=== PATIENT | male | born 1950 | race Caucasian/White ===

== ENCOUNTER 2017-08-02 20:40 | Emergency (ER) | payer OTHER ==
[~2017-08-02] VITALS: Ht 180.3 cm; Wt 107.0 kg
[2017-08-02 20:49] VITALS: Ht 180.3 cm; Wt 107.0 kg
[2017-08-02] MEDS ORDERED: htn meds (22:15)
--- NOTE | 2017-08-02 22:15 | ERD ---
ER Documentation Chief Complaint Chief Complaint abscess on top of rectal area - draining with pus per dtr HPI 67-year-old male presents to emergency department for complaints of draining pus in the perirectal area. Patient has history of abscess on the perianal area before multiple years ago, [place]. Patient's complaint of pain sharp pain, 6/10 scale, worse upon touching the area. Patient does not have any fever or chills. Patient denies any bloody discharge from the rectum. Patient denies any constipation. Patient denies any abdominal pain. ROS All systems reviewed and are negative except as per history of present illness. Medications Home Meds Reported Medications [htn meds] Unknown Strength No Conflict Check 08/02/17 Allergies Allergies: Coded Allergies: No Known Allergy (Unverified , 08/02/17) PMhx/Soc History of Surgery: Yes (APPY, BILAT KNEE SCOPES) Anesthesia Reaction: No Hx Neurological Disorder: No Hx Respiratory Disorders: No Hx Cardiac Disorders: No Hx Psychiatric Problems: No Hx Miscellaneous Medical Probl: Yes (ABCESS WITH DRAINAGE) Hx Alcohol Use: Yes (OCC) Hx Substance Use: No Hx Tobacco Use: Yes Smoking Status: Former smoker FmHx Family History: No coronary disease, No diabetes, No other Physical Exam Vitals Vital Signs Date Time Temp Pulse Resp B/P Pulse Ox O2 Delivery O2 Flow Rate FiO2 08/02/17 20:49 99.3 88 20 143/93 93 Physical Exam GENERAL: The patient is well developed and appropriate for usual state of health, in no apparent distress. CHEST: Clear to auscultation bilaterally. There are no rales, wheezes or rhonchi. HEART: Regular rate and rhythm. No murmurs, clicks, rubs or gallops. No S3 or S4. ABDOMEN: Soft, nontender and nondistended. Good bowel sounds. No rebound or guarding. No gross peritonitis. No gross organomegaly or masses. No Figueroa sign or McBurney point tenderness. BACK: No midline or flank tenderness. EXTREMITIES: Equal pulses bilaterally. There is no peripheral clubbing, cyanosis or edema. No focal swelling or erythema. Full range of motion. Grossly neurovascularly intact. NEURO: Alert and oriented. Cranial nerves 2-12 intact. Motor strength in all 4 extremities with 5/5 strength. Sensation grossly intact. Normal speech and gait. SKIN: There is no apparent rash or petechia. The skin is warm and dry. HEMATOLOGIC AND LYMPHATIC: There is no evidence of excessive bruising or lymphedema. No gross cervical, axillary, or inguinal lymphadenopathy. Rectal: Noted redness and swelling and induration on the perirectal area, 10:00 , has an open wound draining pustular discharge, no fluctuance noted. Good rectal tone. No rectal bleeding noted. Result Diagram: 08/02/17224408/02/172244 Results 24 hrs Laboratory Tests Test 08/02/17 22:45 08/02/17 22:49 White Blood Count 10.510^3/ul Red Blood Count 4.8210^6/ul Hemoglobin 14.9g/dl Hematocrit 43.5% Mean Corpuscular Volume 90.2fl Mean Corpuscular Hemoglobin 30.9pg Mean Corpuscular Hemoglobin Concent 34.3g/dl Red Cell Distribution Width 12.1% Platelet Count 12540^3/UL Mean Platelet Volume 9.4fl Neutrophils % 58.4% Lymphocytes % 26.9% Monocytes % 11.6% Eosinophils % 2.4% Basophils % 0.5% Nucleated Red Blood Cells % 0.0/100WBC Neutrophils # 6.110^3/ul Lymphocytes # 2.810^3/ul Monocytes # 1.210^3/ul Eosinophils # 0.310^3/ul Basophils # 0.110^3/ul Nucleated Red Blood Cells # 0.010^3/ul Sodium Level 142mmol/L Potassium Level 4.1mmol/L Chloride Level 105mmol/L Carbon Dioxide Level 29mmol/L Anion Gap 12 Blood Urea Nitrogen 18mg/dl Creatinine 0.97mg/dl Glucose Level 108mg/dl Calcium Level 9.3mg/dl Total Bilirubin 0.8mg/dl Direct Bilirubin 0.00mg/dl Indirect Bilirubin 0.8mg/dl Aspartate Amino Transf (AST/SGOT) 20IU/L Alanine Aminotransferase (ALT/SGPT) 29IU/L Alkaline Phosphatase 67IU/L Total Protein 7.3g/dl Albumin 3.9g/dl Globulin 3.40g/dl Albumin/Globulin Ratio 1.14 Urine Color YELLOW Urine Clarity CLEAR Urine pH 5.0 Urine Specific [place] 1.024 Urine Ketones NEGATIVEmg/dL Urine Nitrite NEGATIVEmg/dL Urine Bilirubin NEGATIVEmg/dL Urine Urobilinogen 1+mg/dL Urine Leukocyte Esterase NEGATIVELeu/ul Urine Microscopic RBC 3/HPF Urine Microscopic WBC 0/HPF Urine Hemoglobin 2+mg/dL Urine Glucose NEGATIVEmg/dL Urine Total Protein NEGATIVEmg/dl Current Medications Medications (Trade) Dose Ordered Sig/Devin Route PRN Reason Start Time Stop Time Status Last Admin Dose Admin Sodium Chloride (NS) 100 ml @ ud STK-MED ONCE .ROUTE 08/02/17 23:57 08/02/17 23:58 DC 08/03/17 00:14 Iohexol 150 ml 150 ml STK-MED ONCE .ROUTE 08/02/17 23:57 08/02/17 23:58 DC 08/03/17 00:13 Clindamycin HCl/ Dextrose (Cleocin 600 Mg/ D5W (Pmx)) 50 ml @ 50 mls/hr ONCE IVPB 08/03/17 01:00 08/03/17 01:59 IV clindamycin was given here in the emergency department for treatment of the abscess. Tolerated medication well. PROCEDURE: CT Abdomen and pelvis with contrast. CLINICAL INDICATION: Abdominal pain. TECHNIQUE: CT scan of the abdomen and pelvis with contrast was performed on a multi-detector high-resolution CT scanner. The patient was scanned following the uncomplicated administration of 100 cc of Omnipaque 300 intravenous contrast. Coronal and sagittal reformatted images were obtained from the axial source images. Images were reviewed on a high-resolution PACS workstation. DICOM images are available. One or more of the following dose reduction techniques were used: - Automated exposure control. - Adjustment of the mA and/or kV according to patient size. - Use of iterative reconstruction technique. Exam CTD/vol = 20.23 mGy. Total exam DLP = 1394.41 mGy-cm. COMPARISON: None. FINDINGS: Evaluation of the lung bases demonstrates minimal bibasilar atelectasis. There are mild bronchiectatic changes within the lingula. There is a trace pericardial effusion. Abdomen: The liver is normal in size. There is no focal mass or dilatation of the biliary tree. The gallbladder is not distended. The spleen, pancreas and bilateral adrenal glands are within normal limits. Bilateral kidneys are normal in size with symmetric enhancement. There is no focal mass, hydronephrosis or hydroureter. There is no retroperitoneal adenopathy. The abdominal aorta is of normal caliber with mild scattered atherosclerotic calcifications. There is no abnormal bowel wall thickening or distension. There is no bowel obstruction or free air. The appendix is not visualized. There is no diverticulosis or diverticulitis. There is no ascites. Pelvis: The bladder is unremarkable. The prostate is mildly enlarged. There is a small left inguinal hernia containing fat. There is no significant pelvic adenopathy or free fluid. Evaluation of the osseous structures demonstrates no suspicious lytic or blastic lesion. There are degenerative changes of the spine with Schmorl's nodes at multiple levels. IMPRESSION: No acute abnormality identified within the abdomen and pelvis. Mildly enlarged prostate. Small left inguinal hernia containing fat. Vascular calcifications reflective of atherosclerosis. Trace pericardial effusion. .Alber Ellison MD, MD Date Time Electronically viewed and signed by .Alber Ellison MD, on 08/03/2017 00:22 .T/ CC: EDITH MAXWELL NP Procedures/MDM Medical decision making: Patient symptoms was likely is consistent with a perirectal abscess, is already draining, no symptoms of any fluctuance at this time. No tracking noted. No symptoms of any fistula noted in the CT scan. No s/s of any necrotizing fasciitis no deep space infection noted. No symptoms of sepsis at this time, patient appears well and is hemodynamically stable. Patient was given IV clindamycin, will be sent home with clindamycin, Colace, Tylenol for pain, is advised to follow-up with primary care doctor in 2 days, possibly see colorectal surgeon. Patient was advised to return to emergency department for any worsening times. Disposition: Home. Stable Departure Diagnosis: Primary Impression: Abscess Condition: Stable Patient Instructions: Abscess, Incision And Drainage EDITH MAXWLEL NP Aug 02, 2017 22:15
[2017-08-02 23:00] LABS: BASOPHIL # 0.1 10^3/ul (0.0-0.1); BASOPHILS % 0.5 % (0.0-2.0); EOSINOPHILS # 0.3 10^3/ul (0.0-0.5); EOSINOPHILS % 2.4 % (0.0-7.0); HEMATOCRIT 43.5 % (42.0-52.0); HEMOGLOBIN 14.9 g/dl (14.0-18.0); LYMPHOCYTES # 2.8 10^3/ul (0.8-2.9); LYMPHOCYTES % 26.9 % (15.0-51.0); MEAN CORPUSCULAR HEMOGLOBIN 30.9 pg (29.0-33.0); MEAN CORPUSCULAR HGB CONC 34.3 g/dl (32.0-37.0); MEAN CORPUSCULAR VOLUME 90.2 fl (82.0-101.0); MEAN PLATELET VOLUME 9.4 fl (7.4-10.4); MONOCYTE # 1.2 10^3/ul (0.3-0.9); MONOCYTES % 11.6 % (0.0-11.0); NEUTROPHIL # 6.1 10^3/ul (1.6-7.5); NEUTROPHILS % 58.4 % (39.0-77.0); PLATELET COUNT 200 10^3/UL (140-415); RED BLOOD COUNT 4.82 10^6/ul (4.70-6.10); RED CELL DISTRIBUTION WIDTH 12.1 % (11.5-14.5); WHITE BLOOD COUNT 10.5 10^3/ul (4.8-10.8)
[2017-08-02 23:19] LABS: ALBUMIN 3.9 g/dl (3.3-4.9); ALBUMIN/GLOBULIN RATIO 1.14; BILIRUBIN,INDIRECT 0.8 mg/dl (0-1.1); BILIRUBIN,TOTAL 0.8 mg/dl (0.2-1.3); CALCIUM 9.3 mg/dl (8.4-10.2); CREATININE 0.97 mg/dl (0.61-1.24); POTASSIUM 4.1 mmol/L (3.5-5.1); TOTAL PROTEIN 7.3 g/dl (6.1-8.1)
[2017-08-02 23:40] LABS: ADD UMIC YES; UR ASCORBIC ACID NEGATIVE (NEGATIVE); UR BILIRUBIN (Dip) NEGATIVE (NEGATIVE); UR BLOOD (Dip) 2+ mg/dL (NEGATIVE); UR CLARITY CLEAR (CLEAR); UR COLOR YELLOW (YELLOW); UR GLUCOSE (Dip) NEGATIVE (NEGATIVE); UR KETONES (Dip) NEGATIVE (NEGATIVE); UR LEUKOCYTE ESTERASE (Dip) NEGATIVE Leu/ul (NEGATIVE); UR NITRITE (Dip) NEGATIVE (NEGATIVE); UR RBC 3 /HPF (0-5); UR SPECIFIC GRAVITY (Dip) 1.024 (1.003-1.030); UR TOTAL PROTEIN (Dip) NEGATIVE (NEGATIVE); UR UROBILINOGEN (Dip) 1+ mg/dL (NEGATIVE)
[2017-08-02] MEDS ORDERED: IOHEXOL 300MG/ML 150 ML BTL ONE (23:57)
[2017-08-02] MEDS ORDERED: SOD CHLORIDE 0.9% 100 ML ONE (23:57)
--- NOTE | 2017-08-03 00:22 | RADRPT ---
PROCEDURE: CT Abdomen and pelvis with contrast. CLINICAL INDICATION: Abdominal pain. TECHNIQUE: CT scan of the abdomen and pelvis with contrast was performed on a multi-detector high -resolution CT scanner. The patient was scanned following the uncomplicated administration of 100 c c of Omnipaque 300 intravenous contrast. Coronal and sagittal reformatted images were obtained from the axial source images. Images were reviewed on a high-resolution PACS workstation. DICOM images a re available. One or more of the following dose reduction techniques were used: - Automated exposure control. - Adjustment of the mA and/or kV according to patient size. - Use of iterative reconstruction technique. Exam CTD/vol = 20.23 mGy. Total exam DLP = 1394.41 mGy-cm. COMPARISON: None. FINDINGS: Evaluation of the lung bases demonstrates minimal bibasilar atelectasis. There are mild bronchiectat ic changes within the lingula. There is a trace pericardial effusion. Abdomen: The liver is normal in size. There is no focal mass or dilatation of the biliary tree. T he gallbladder is not distended. The spleen, pancreas and bilateral adrenal glands are within madhavi l limits. Bilateral kidneys are normal in size with symmetric enhancement. There is no focal mass, hydronephrosis or hydroureter. There is no retroperitoneal adenopathy. The abdominal aorta is of normal caliber with mild scattered atherosclerotic calcifications. There is no abnormal bowel wall thickening or distension. There is no bowel obstruction or free air . The appendix is not visualized. There is no diverticulosis or diverticulitis. There is no ascit es. Pelvis: The bladder is unremarkable. The prostate is mildly enlarged. There is a small left inguin al hernia containing fat. There is no significant pelvic adenopathy or free fluid. Evaluation of the osseous structures demonstrates no suspicious lytic or blastic lesion. There are d egenerative changes of the spine with Schmorl's nodes at multiple levels. IMPRESSION: No acute abnormality identified within the abdomen and pelvis. Mildly enlarged prostate. Small left inguinal hernia containing fat. Vascular calcifications reflective of atherosclerosis. Trace pericardial effusion. .Alber Ellison MD, Date Time Electronically viewed and signed by .Alber Ellison MD, on 08/03/2017 00:22 .T/
[2017-08-03] MEDS ORDERED: CLIN-73 PO (00:47)
[2017-08-03] MEDS ORDERED: ACET500C5 PO (00:47)
[2017-08-03] MEDS ORDERED: DOCU-144 PO (00:47)
[2017-08-03] MEDS ORDERED: CLINDAMYCIN 600 MG/D5W (PMX) 50 ML IVPB SCH (01:00)
[2017-08-03 01:43] VITALS: BP 135/65; PULSE 89; RESP 19; TEMP 99.3
== END 2017-08-03 01:44 | disposition home or self-care (01) ==
LOC: FTE 20:40
DX: K61.1 Rectal abscess (principal); Z87.891 Personal history of nicotine dependence
CPT/HCPCS: 74177; 80053; 81001; 85025; Q9967; Z7610; 36415; 96374